=== PATIENT | male | born 1930 | race Caucasian/White ===

== ENCOUNTER 2017-04-15 20:08 | Observation (INO) | payer OTHER ==
[~2017-04-15] VITALS: Ht 177.8 cm; Wt 92.2 kg
[~2017-04-15 20:08] MED LIST: ACTOS30 MG PO; ATORVASTATIN CA80 MG PO; CELEBREX200 MG PO; CIPROFLOXACIN500 M1 PO; DELTASONE10 MG PO; FLONASE16 G1 BOTH NARES; GEMFIBROZIL600 MG PO; GLYBURIDE5 MG PO; HYDROCODON-ACE1 EAC7 PO; JANUVIA100 MG PO; LANTUS 3 M100 UNITS1 SQ; MACROBID100 MG PO; METRONIDAZOLE500 MG PO; OMEPRAZOLE20 M3 PO; PHENAZOPYRIDIN200 MG PO; Proventil,Ventolin H IH; SIMVASTATIN40 M1 PO; SOTALOL120 MG PO; SPIRIVA1 INHALATI IH; Tylenol Regular Stre PO; WARFARIN SODIUM4 MG PO; WARFARIN SODIUM5 MG PO
[2017-04-15 20:50] LABS: HEMATOCRIT 46.8 % (38.0-50.0); MCH 32.4 PG (29.0-34.0); MCV 95.3 FL (86-99); MEAN PLAT.VOLUME 10.4 uM^3 (9.0-12.4); PLATELET COUNT 141 K/uL (156-360); RBC DIS.WIDTH-CV 13.2 % (11.8-14.6); RED BLOOD COUNT 4.91 M/uL (4.00-5.50); WHITE BLOOD COUNT 9.3 K/uL (4.1-10.2)
[2017-04-15 20:59] LABS: CHLORIDE 107 mEq/L (99-109); POTASSIUM 4.2 mEq/L (3.7-5.4); SODIUM 141 mEq/L (136-147)
[2017-04-15 21:00] LABS: GLUCOSE 214 mg/dL (70-99)
[2017-04-15 21:02] LABS: ANION GAP 6 MEQ/L (2-14)
[2017-04-15 21:04] LABS: GFR ESTIMATE (CALCULATED) > 59 mL/min/
[2017-04-15 21:05] LABS: UREA NITROGEN (BUN) 20 mg/dL (9-23)
[2017-04-15 21:15] LABS: TROP-I INTERPRETATION NEGATIVE; TROPONIN-I < 0.01 ng/mL (0.0-0.30)
[2017-04-15] MEDS ORDERED: GLIPIZIDE10 MG PO (22:30)
[2017-04-15] MEDS ORDERED: JANTOVEN5 MG PO (22:30)
[2017-04-15] MEDS ORDERED: PRILOSEC20 MG PO (22:31)
[2017-04-15] MEDS ORDERED: DUONEB 2.5-0.5 M3 ML AEROSOL (22:32)
[2017-04-15] MEDS ORDERED: PIOGLITAZONE HC15 MG PO (22:33)
[2017-04-15] MEDS ORDERED: NOVOLOG PE100 UNITS/ SC (22:34)
[2017-04-15 22:57] LABS: ADD MIUA? NO; BILIRUBIN NEGATIVE; BLOOD NEGATIVE; COLOR YELLOW ((YELLOW)); GLUCOSE (STRIP) 150; KETONES 5; LEUKOCYTES NEGATIVE; NITRITE NEGATIVE; PROTEIN (STRIP) NEGATIVE; SPECIFIC GRAVITY 1.021 (1.000-1.030)
[2017-04-16 00:03] LABS: D-DIMER ELISA 0.25 mg/L FEU (< 0.57); INTER. NORMALIZED RATIO 1.2; PROTHROMBIN TIME 12.6 (9.2-11.2); PTT 31.3 (25-32)
[2017-04-16 01:44] VITALS: BP 159/71
[2017-04-16 04:18] VITALS: BP 143/74
[2017-04-16 07:54] LABS: INTER. NORMALIZED RATIO 1.4
[2017-04-16 07:57] LABS: PTT 63.1 (25-32)
[2017-04-16 08:18] LABS: HDL CHOLESTEROL 28 MG/DL (Desirable>=40); LDL CHOLESTEROL 61 mg/dL (Desirable<100); NON-HDL CHOLESTEROL 74 mg/dL (Desirable<160); TOTAL CHOLESTEROL 102 mg/dL (Desirable<200); TRIGLYCERIDES 64 MG/DL (Normal: <150)
[2017-04-16 08:22] LABS: POINT-OF-CARE METER ID UU13113831
[2017-04-16 09:32] LABS: Estimated Average Glucose 192 mg/dL (70-123); HEMOGLOBIN A1c (GLYCOHEMOGLOB) 8.3 % HGB (Below 5.7)
[2017-04-16 11:43] VITALS: BP 131/67
[2017-04-16 12:31] LABS: POINT-OF-CARE METER ID UU13113831
[2017-04-16 15:55] LABS: TROP-I INTERPRETATION NEGATIVE; TROPONIN-I < 0.01 ng/mL (0.0-0.30)
== END 2017-04-16 16:46 | disposition home or self-care (01) ==
LOC: EME 20:08 → EDOF 22:39 → 5WEST 22:39 → EDOF 22:39 → 5WEST 04-16 01:29
PROVIDERS: Internal Medicine; Internal Medicine Cardiovascular Disease; Physician Assistant; Student in an Organized Health Care Education/Training Program
DX: R55 Syncope and collapse (principal); E11.9 Type 2 diabetes mellitus without complications; J44.9 Chronic obstructive pulmonary disease, unspecified; I10 Essential (primary) hypertension; I48.0 Paroxysmal atrial fibrillation; Z79.01 Long term (current) use of anticoagulants; E78.5 Hyperlipidemia, unspecified; Z79.4 Long term (current) use of insulin; K21.9 Gastro-esophageal reflux disease without esophagitis; E66.9 Obesity, unspecified; Z68.29 Body mass index [BMI] 29.0-29.9, adult; E78.00 Pure hypercholesterolemia, unspecified
CPT/HCPCS: 70450; 80048; 80061; 81003; 82948; 83036; 84443; 84484; 85027; 85379; 85610; 85730; 93005; 94799; 99202; 99281; 99285; G0378; G8978 GP CH; G8979 GP CH; G8980 GP CH; J7030

== ENCOUNTER 2017-07-11 12:34 | Inpatient (IN) | payer OTHER ==
[~2017-07-11] VITALS: Ht 154.9 cm; Wt 88.0 kg
[~2017-07-11 12:34] MED LIST changes: +DUONEB 2.5-0.5 M3 ML AEROSOL; +GLIPIZIDE10 MG PO; +JANTOVEN5 MG PO; +NOVOLOG PE100 UNITS/ SC; +PIOGLITAZONE HC15 MG PO; +PRILOSEC20 MG PO
[2017-07-11 13:37] LABS: ADD MIUA? NO; BILIRUBIN NEGATIVE; BLOOD NEGATIVE; COLOR YELLOW ((YELLOW)); GLUCOSE (STRIP) >=500; KETONES 5; LEUKOCYTES NEGATIVE; NITRITE NEGATIVE; PROTEIN (STRIP) NEGATIVE; SPECIFIC GRAVITY 1.028 (1.000-1.030); UCUL ADDED? NO
[2017-07-11 14:23] LABS: EOSINOPHIL (%) 2.1 % (0-5); EOSINOPHIL COUNT 0.1 K/uL (0-0.3); HEMATOCRIT 46.3 % (38.0-50.0); IMMATURE GRANULOCYTE (%) 0.3 % (0.0-0.7); INSTRUMENT ABS NEUTROPHIL CT 4.7 K/uL; LYMPHOCYTE COUNT 1.1 K/uL (1.0-2.8); MCH 32.3 PG (29.0-34.0); MCHC 34.8 G/DL (30.0-36.0); MEAN PLAT.VOLUME 10.8 uM^3 (9.0-12.4); MONOCYTE (%) 9.2 % (3-12); MONOCYTE COUNT 0.6 K/uL (0-0.8); NEUTROPHIL (%) 71.4 % (45-76); NEUTROPHIL COUNT 4.7 K/uL (1.8-6.4); PLATELET COUNT 150 K/uL (156-360); RBC DIS.WIDTH-CV 12.8 % (11.8-14.6); RBC DIS.WIDTH-SD 43.8 % (39-53); RED BLOOD COUNT 4.98 M/uL (4.00-5.50); WHITE BLOOD COUNT 6.5 K/uL (4.1-10.2)
[2017-07-11 14:28] LABS: INTER. NORMALIZED RATIO 1.4; PROTHROMBIN TIME 15.1 SEC (10.2-12.9)
[2017-07-11 14:38] LABS: CHLORIDE 107 mEq/L (99-109); SODIUM 138 mEq/L (136-147)
[2017-07-11 14:40] LABS: GLUCOSE 288 mg/dL (70-99)
[2017-07-11 14:41] LABS: ANION GAP 8 MEQ/L (2-14)
[2017-07-11 14:42] LABS: TOTAL BILIRUBIN 2.5 mg/dL (0.0-1.0)
[2017-07-11 14:44] LABS: ALKALINE PHOSPHATASE 105 IU/L (3-129); GFR ESTIMATE (CALCULATED) > 59 mL/min/
[2017-07-11 14:45] LABS: UREA NITROGEN (BUN) 17 mg/dL (9-23)
[2017-07-11 14:46] LABS: TROP-I INTERPRETATION NEGATIVE; TROPONIN-I < 0.01 ng/mL (0.0-0.30)
[2017-07-11 17:12] VITALS: BP 179/80
[2017-07-11 17:40] LABS: POINT-OF-CARE METER ID UU14162513
[2017-07-11 19:57] VITALS: BP 149/83
[2017-07-11 21:14] LABS: TROP-I INTERPRETATION NEGATIVE; TROPONIN-I < 0.01 ng/mL (0.0-0.30)
[2017-07-12] VITALS (7 sets, daily range): BP systolic 96–181; BP diastolic 53–93
[2017-07-12 03:42] LABS: INTER. NORMALIZED RATIO 1.2; PROTHROMBIN TIME 13.6 SEC (10.2-12.9)
[2017-07-12 03:46] LABS: CHLORIDE 106 mEq/L (99-109); POTASSIUM 3.8 mEq/L (3.7-5.4); SODIUM 139 mEq/L (136-147)
[2017-07-12 03:48] LABS: GLUCOSE 223 mg/dL (70-99)
[2017-07-12 03:49] LABS: ANION GAP 8 MEQ/L (2-14)
[2017-07-12 03:52] LABS: GFR ESTIMATE (CALCULATED) > 59 mL/min/; UREA NITROGEN (BUN) 15 mg/dL (9-23)
[2017-07-12 03:55] LABS: TROP-I INTERPRETATION NEGATIVE; TROPONIN-I 0.02 ng/mL (0.0-0.30)
[2017-07-12 05:02] LABS: HDL CHOLESTEROL 30 MG/DL (Desirable>=40); LDL CHOLESTEROL 142 mg/dL (Desirable<100); NON-HDL CHOLESTEROL 169 mg/dL (Desirable<160); SAMPLE HEMOLYSIS CHECK 0; SAMPLE ICTERIC CHECK 0; SAMPLE LIPEMIA CHECK 0; TOTAL CHOLESTEROL 199 mg/dL (Desirable<200); TRIGLYCERIDES 134 MG/DL (Normal: <150)
[2017-07-12 06:31] LABS: Estimated Average Glucose 226 mg/dL (70-123); HEMOGLOBIN A1c (GLYCOHEMOGLOB) 9.5 % HGB (Below 5.7)
[2017-07-12] MEDS ORDERED: DIPROSONE 0.05%15 G1 TP (13:55)
[2017-07-13 06:03] LABS: HEMATOCRIT 45.7 % (38.0-50.0); MCH 31.8 PG (29.0-34.0); MCHC 34.1 G/DL (30.0-36.0); MCV 93.3 FL (86-99); MEAN PLAT.VOLUME 10.6 uM^3 (9.0-12.4); PLATELET COUNT 141 K/uL (156-360); RBC DIS.WIDTH-CV 12.7 % (11.8-14.6); RBC DIS.WIDTH-SD 43.8 % (39-53); WHITE BLOOD COUNT 5.3 K/uL (4.1-10.2)
[2017-07-13 06:36] LABS: ALKALINE PHOSPHATASE 88 IU/L (3-129); ANION GAP 7 MEQ/L (2-14); CHLORIDE 106 MEQ/L (99-109); GFR ESTIMATE (CALCULATED) > 59 mL/min/; GLUCOSE 233 mg/dL (70-99); POTASSIUM 4.1 MEQ/L (3.7-5.4); SAMPLE HEMOLYSIS CHECK 0; SAMPLE ICTERIC CHECK 1; SAMPLE LIPEMIA CHECK 0; SODIUM 139 MEQ/L (136-147); TOTAL BILIRUBIN 2.9 MG/DL (0.0-1.0); UREA NITROGEN (BUN) 17 mg/dL (9-23)
[2017-07-13 08:24] VITALS: BP 138/81
[2017-07-13 11:53] LABS: POINT-OF-CARE METER ID UU14174225
[2017-07-13 12:07] VITALS: BP 136/78
[2017-07-13 16:20] VITALS: BP 116/58
[2017-07-13 19:45] VITALS: BP 154/81
[2017-07-13 21:05] LABS: POINT-OF-CARE METER ID UU13113717
[2017-07-13 23:31] VITALS: BP 122/60
[2017-07-14 03:55] VITALS: BP 144/74
[2017-07-14 08:04] VITALS: BP 140/66
[2017-07-14 12:39] LABS: POINT-OF-CARE METER ID UU14174225
[2017-07-14 13:17] VITALS: BP 147/74
[2017-07-14 16:52] LABS: POINT-OF-CARE METER ID UU14174225
[2017-07-14 20:52] VITALS: BP 136/74
[2017-07-15 00:55] VITALS: BP 116/79
[2017-07-15 08:00] VITALS: BP 131/73
[2017-07-15 08:38] LABS: POINT-OF-CARE METER ID UU13113717
[2017-07-15] MEDS ORDERED: XARELTO20 MG PO (08:48)
[2017-07-15] MEDS ORDERED: ASPIR-LOW81 MG PO (08:49)
[2017-07-15] MEDS ORDERED: ATORVASTATIN CA80 MG PO (08:49)
[2017-07-15] MEDS ORDERED: PEPCID20 MG PO (13:03)
[2017-07-15] MEDS ORDERED: ACETAMINOPHEN325 M1 PO (13:07)
== END 2017-07-15 11:10 | DRG 64 ==
LOC: EME 12:34 → EDOF 15:42 → ENRESERV 15:45 → 5WEST 16:52 → 5SOUTH 16:56 → ENRESERV 17:06 → 5SOUTH 19:27
PROVIDERS: Internal Medicine; Physician Assistant Medical
DX: I63.132 Cerebral infarction due to embolism of left carotid artery (principal); G93.40 Encephalopathy, unspecified; E11.65 Type 2 diabetes mellitus with hyperglycemia; H53.461 Homonymous bilateral field defects, right side; I10 Essential (primary) hypertension; I48.0 Paroxysmal atrial fibrillation; I48.2 Chronic atrial fibrillation; R79.1 Abnormal coagulation profile; J44.9 Chronic obstructive pulmonary disease, unspecified; E78.00 Pure hypercholesterolemia, unspecified; E78.5 Hyperlipidemia, unspecified; K14.8 Other diseases of tongue; K21.9 Gastro-esophageal reflux disease without esophagitis; Z79.01 Long term (current) use of anticoagulants; Z79.4 Long term (current) use of insulin; Z87.891 Personal history of nicotine dependence
CPT/HCPCS: 70450; 70498; 70551; 71010; 76705; 80048; 80053; 80061; 81003; 82948; 83036; 84484; 85025; 85027; 85610; 93005; 93306; 93880; 96125 GN; 97530 GO; 99281; 99285; J1200; J1650; J1815; J7030; J7509; S0028

== ENCOUNTER 2017-07-15 11:27 | Inpatient (IN) | payer OTHER ==
[~2017-07-15] VITALS: Ht 177.8 cm; Wt 84.0 kg
[~2017-07-15 11:27] MED LIST changes: +ASPIR-LOW81 MG PO; +DIPROSONE 0.05%15 G1 TP; +XARELTO20 MG PO
[2017-07-15 11:30] VITALS: BP 146/71
[2017-07-15 12:09] LABS: POINT-OF-CARE METER ID UU13113720
[2017-07-15] MEDS ORDERED: PEPCID20 MG PO (13:03)
[2017-07-15] MEDS ORDERED: ACETAMINOPHEN325 M1 PO (13:07)
[2017-07-15 14:30] VITALS: BP 153/101
[2017-07-15 14:37] LABS: POINT-OF-CARE METER ID UU13113720; POINT-OF-CARE USER ID ENVGAF
[2017-07-15 14:45] VITALS: BP 201/101
[2017-07-15 14:50] LABS: HEMATOCRIT 49.7 % (38.0-50.0); MCH 31.8 PG (29.0-34.0); MCHC 34.4 G/DL (30.0-36.0); MCV 92.6 FL (86-99); MEAN PLAT.VOLUME 10.6 uM^3 (9.0-12.4); RBC DIS.WIDTH-SD 43.9 % (39-53); RED BLOOD COUNT 5.37 M/uL (4.00-5.50); WHITE BLOOD COUNT 12.5 K/uL (4.1-10.2)
[2017-07-15 14:51] LABS: PLATELET COUNT 190 K/uL (156-360)
[2017-07-15 14:52] LABS: BICARBONATE 13.4 mEq/L (22-26); CARBOXY HGB 1.8 % (0-5); METHEMOGLOBIN 1.6 % (0-1.5); PCO2 36 mm Hg (35-45); PO2 96 mm Hg (80-100)
[2017-07-15 14:53] LABS: COMMENTS - BLOOD GASES C+; DEVICE RA AFTER BAGGING; SITE RR; pH 7.18 (7.35-7.45)
[2017-07-15 15:29] LABS: ANION GAP 14 MEQ/L (2-14); CHLORIDE 104 MEQ/L (99-109); GFR ESTIMATE (CALCULATED) > 59 mL/min/; GLUCOSE 341 mg/dL (70-99); POTASSIUM 3.8 MEQ/L (3.7-5.4); SAMPLE HEMOLYSIS CHECK 0; SAMPLE ICTERIC CHECK 0; SAMPLE LIPEMIA CHECK 0; SODIUM 138 MEQ/L (136-147); UREA NITROGEN (BUN) 25 mg/dL (9-23)
[2017-07-16] VITALS (7 sets, daily range): BP systolic 120–139; BP diastolic 57–92
== END 2017-07-15 15:14 | DRG 57 ==
LOC: 3WEST 11:27 → CANRESERV 15:13 → ENRESERV 15:13 → 3WEST 15:13
PROVIDERS: Hospitalist; Physical Medicine & Rehabilitation Pain Medicine
DX: I69.398 Other sequelae of cerebral infarction (principal); R41.0 Disorientation, unspecified; R45.1 Restlessness and agitation; R56.9 Unspecified convulsions; I48.91 Unspecified atrial fibrillation; J44.9 Chronic obstructive pulmonary disease, unspecified; K21.9 Gastro-esophageal reflux disease without esophagitis; E11.9 Type 2 diabetes mellitus without complications; I10 Essential (primary) hypertension; H91.90 Unspecified hearing loss, unspecified ear
CPT/HCPCS: 36600; 80048; 82803; 82948; 85027; 94799; J1630

== ENCOUNTER 2017-07-15 15:22 | Inpatient (IN) | payer OTHER ==
[~2017-07-15] VITALS: Ht 172.7 cm; Wt 85.2 kg
[~2017-07-15 15:22] MED LIST changes: +ACETAMINOPHEN325 M1 PO; +PEPCID20 MG PO
[2017-07-15 15:43] VITALS: BP 124/74
[2017-07-15 17:04] LABS: METH RESISTANT S AUREUS PCR NEGATIVE (NEGATIVE)
[2017-07-15 17:09] LABS: PROBE CHECK PASS; SPECIMEN PROCESSING CONTROL PASS
[2017-07-15 17:30] LABS: TROP-I INTERPRETATION NEGATIVE; TROPONIN-I < 0.01 ng/mL (0.0-0.30)
[2017-07-15 19:00] VITALS: BP 112/54
[2017-07-15 21:00] VITALS: BP 136/85
[2017-07-15 22:06] LABS: POINT-OF-CARE METER ID UU14162636; POINT-OF-CARE USER ID 609231305
[2017-07-15 23:00] VITALS: BP 112/67
[2017-07-16 01:00] VITALS: BP 117/73
[2017-07-16 03:00] VITALS: BP 125/91
[2017-07-16 05:00] VITALS: BP 104/58
[2017-07-16 06:10] LABS: HEMATOCRIT 44.7 % (38.0-50.0); MCH 32.2 PG (29.0-34.0); MCHC 34.5 G/DL (30.0-36.0); MCV 93.5 FL (86-99); MEAN PLAT.VOLUME 10.8 uM^3 (9.0-12.4); PLATELET COUNT 150 K/uL (156-360); RBC DIS.WIDTH-CV 12.9 % (11.8-14.6); RBC DIS.WIDTH-SD 44.5 % (39-53); RED BLOOD COUNT 4.78 M/uL (4.00-5.50); WHITE BLOOD COUNT 10.7 K/uL (4.1-10.2)
[2017-07-16 06:39] LABS: ANION GAP 8 MEQ/L (2-14); CHLORIDE 107 MEQ/L (99-109); GFR ESTIMATE (CALCULATED) > 59 mL/min/; GLUCOSE 167 mg/dL (70-99); POTASSIUM 3.9 MEQ/L (3.7-5.4); SAMPLE HEMOLYSIS CHECK 0; SAMPLE ICTERIC CHECK 0; SAMPLE LIPEMIA CHECK 0; SODIUM 142 MEQ/L (136-147); UREA NITROGEN (BUN) 25 mg/dL (9-23)
[2017-07-16 08:32] LABS: BASE EXCESS -1.1 mEq/L (-3 to +3); CARBOXY HGB 2.1 % (0-5); METHEMOGLOBIN 1.5 % (0-1.5)
[2017-07-16 08:33] LABS: BICARBONATE 24.3 mEq/L (22-26); COMMENTS - BLOOD GASES C+; DEVICE NC; O2 FLOW 1 L/MIN; PCO2 42 mm Hg (35-45); PO2 62 mm Hg (80-100); SITE RR; TOTAL RESP RATE 16 resp/min; pH 7.37 (7.35-7.45)
[2017-07-16 12:04] LABS: POINT-OF-CARE METER ID UU13113731
[2017-07-16 17:31] LABS: POINT-OF-CARE METER ID UU13113731
[2017-07-16 19:01] LABS: C DIFF TOXIN NEGATIVE (NEGATIVE)
[2017-07-16 19:18] LABS: PROBE CHECK PASS; SPECIMEN PROCESSING CONTROL PASS
[2017-07-16 21:15] LABS: POINT-OF-CARE METER ID UU13113731
[2017-07-16 22:00] VITALS: BP 139/58
[2017-07-17] VITALS (7 sets, daily range): BP systolic 108–169; BP diastolic 50–97
[2017-07-17 01:04] LABS: POINT-OF-CARE METER ID UU13113731
[2017-07-17 05:30] LABS: EOSINOPHIL (%) 1.5 % (0-5); EOSINOPHIL COUNT 0.1 K/uL (0-0.3); HEMATOCRIT 45.4 % (38.0-50.0); IMMATURE GRANULOCYTE (%) 0.4 % (0.0-0.7); INSTRUMENT ABS NEUTROPHIL CT 5.3 K/uL; LYMPHOCYTE COUNT 1.2 K/uL (1.0-2.8); MCHC 34.4 G/DL (30.0-36.0); MEAN PLAT.VOLUME 10.6 uM^3 (9.0-12.4); MONOCYTE (%) 11.4 % (3-12); MONOCYTE COUNT 0.9 K/uL (0-0.8); NEUTROPHIL (%) 70.8 % (45-76); NEUTROPHIL COUNT 5.3 K/uL (1.8-6.4); PLATELET COUNT 146 K/uL (156-360); RBC DIS.WIDTH-CV 12.9 % (11.8-14.6); RBC DIS.WIDTH-SD 44.1 % (39-53); RED BLOOD COUNT 4.88 M/uL (4.00-5.50); WHITE BLOOD COUNT 7.5 K/uL (4.1-10.2)
[2017-07-17 05:53] LABS: POINT-OF-CARE METER ID UU14208751
[2017-07-17 06:12] LABS: ANION GAP 7 MEQ/L (2-14); CHLORIDE 110 MEQ/L (99-109); GFR ESTIMATE (CALCULATED) > 59 mL/min/; MAGNESIUM 1.7 mg/dl (1.3-2.7); POTASSIUM 3.4 MEQ/L (3.7-5.4); SAMPLE HEMOLYSIS CHECK 0; SAMPLE ICTERIC CHECK 0; SAMPLE LIPEMIA CHECK 0; SODIUM 143 MEQ/L (136-147); UREA NITROGEN (BUN) 19 mg/dL (9-23)
[2017-07-17 06:14] LABS: GLUCOSE 113 mg/dL (70-99)
[2017-07-17 12:43] LABS: POINT-OF-CARE METER ID UU13113731
[2017-07-17 17:23] LABS: POINT-OF-CARE METER ID UU14188577
[2017-07-17 23:57] LABS: POINT-OF-CARE METER ID UU14117124
[2017-07-18 03:41] VITALS: BP 117/63
[2017-07-18 06:47] LABS: POINT-OF-CARE METER ID UU14208753
[2017-07-18 07:51] VITALS: BP 123/58
[2017-07-18 15:45] VITALS: BP 136/80
[2017-07-18 21:49] LABS: POINT-OF-CARE METER ID UU14188577
[2017-07-19 00:33] VITALS: BP 122/69
[2017-07-19 03:10] VITALS: BP 130/63
[2017-07-19 06:26] LABS: POINT-OF-CARE METER ID UU14117124
[2017-07-19 07:00] LABS: ANION GAP 6 MEQ/L (2-14); CHLORIDE 107 MEQ/L (99-109); GFR ESTIMATE (CALCULATED) > 59 mL/min/; MAGNESIUM 1.6 mg/dl (1.3-2.7); POTASSIUM 3.9 MEQ/L (3.7-5.4); SAMPLE HEMOLYSIS CHECK 0; SAMPLE ICTERIC CHECK 0; SAMPLE LIPEMIA CHECK 0; SODIUM 141 MEQ/L (136-147); UREA NITROGEN (BUN) 14 mg/dL (9-23)
[2017-07-19 07:02] LABS: GLUCOSE 187 mg/dL (70-99)
[2017-07-19 07:51] VITALS: BP 139/84
[2017-07-19 11:25] LABS: POINT-OF-CARE METER ID UU14117124
[2017-07-19] MEDS ORDERED: LEVETIRACETAM500 MG PO (14:07)
== END 2017-07-19 14:44 | DRG 100 ==
LOC: 3EAST 15:22 → 4WEST 15:22 → ENRESERV 07-17 14:20 → 3EAST 07-17 16:41
PROVIDERS: Hospitalist; Internal Medicine; Internal Medicine Nephrology; Physical Medicine & Rehabilitation Pain Medicine
DX: G40.89 Other seizures (principal); I63.40 Cerebral infarction due to embolism of unspecified cerebral artery; G93.40 Encephalopathy, unspecified; I48.2 Chronic atrial fibrillation; J44.9 Chronic obstructive pulmonary disease, unspecified; E87.2 Acidosis; E87.6 Hypokalemia; E11.65 Type 2 diabetes mellitus with hyperglycemia; I10 Essential (primary) hypertension; Z79.01 Long term (current) use of anticoagulants; I65.29 Occlusion and stenosis of unspecified carotid artery; K21.9 Gastro-esophageal reflux disease without esophagitis; R09.02 Hypoxemia
CPT/HCPCS: 36600; 70450; 80048; 82803; 82948; 83735; 84146; 84484; 85025; 85027; 87493; 87641; 92523 GN; 92526 GN; 92610 GN; 93005; 94640; 94640 76; 94799; 97530 GO; 97530 GP; 97532 GN; J1630; J1815; J1953; J2060; J7030; J7050; S0028

== ENCOUNTER 2017-07-19 12:13 | Inpatient (IN) | payer OTHER ==
[~2017-07-19] VITALS: Ht 177.8 cm; Wt 84.7 kg
[2017-07-19] MEDS ORDERED: LEVETIRACETAM500 MG PO (14:07)
[2017-07-19 15:37] VITALS: BP 155/78
[2017-07-19 16:30] LABS: POINT-OF-CARE METER ID UU14174215
[2017-07-19 21:07] LABS: POINT-OF-CARE METER ID UU13113720
[2017-07-20 05:05] VITALS: BP 153/70
[2017-07-20 06:09] LABS: HEMATOCRIT 45.7 % (38.0-50.0); MCH 33.1 PG (29.0-34.0); MCHC 35.9 G/DL (30.0-36.0); MCV 92.3 FL (86-99); MEAN PLAT.VOLUME 10.7 uM^3 (9.0-12.4); PLATELET COUNT 147 K/uL (156-360); RBC DIS.WIDTH-SD 43.9 % (39-53); RED BLOOD COUNT 4.95 M/uL (4.00-5.50); WHITE BLOOD COUNT 6.1 K/uL (4.1-10.2)
[2017-07-20 06:35] LABS: ALKALINE PHOSPHATASE 99 IU/L (3-129); ANION GAP 8 MEQ/L (2-14); CHLORIDE 104 MEQ/L (99-109); GFR ESTIMATE (CALCULATED) > 59 mL/min/; GLUCOSE 151 mg/dL (70-99); POTASSIUM 3.9 MEQ/L (3.7-5.4); SAMPLE HEMOLYSIS CHECK 0; SAMPLE ICTERIC CHECK 0; SAMPLE LIPEMIA CHECK 0; SODIUM 140 MEQ/L (136-147); TOTAL BILIRUBIN 1.8 MG/DL (0.0-1.0); UREA NITROGEN (BUN) 13 mg/dL (9-23)
[2017-07-20 11:21] LABS: POINT-OF-CARE METER ID UU14174215; POINT-OF-CARE USER ID ENVGAF
[2017-07-20 15:31] VITALS: BP 127/70
[2017-07-20 16:25] LABS: POINT-OF-CARE METER ID UU14174215
[2017-07-20 21:13] LABS: POINT-OF-CARE METER ID UU13113720
[2017-07-21 04:10] VITALS: BP 131/62
[2017-07-21 07:38] LABS: POINT-OF-CARE METER ID UU14174215
[2017-07-21 15:24] LABS: POINT-OF-CARE METER ID UU14174215
[2017-07-21 15:25] VITALS: BP 122/67
[2017-07-21 16:36] LABS: POINT-OF-CARE METER ID UU13113720
[2017-07-21 21:23] LABS: POINT-OF-CARE METER ID UU14174215
[2017-07-22 04:52] VITALS: BP 111/55
[2017-07-22 06:57] LABS: POINT-OF-CARE METER ID UU13113720
[2017-07-22 11:39] LABS: POINT-OF-CARE METER ID UU14174215
[2017-07-22 15:13] VITALS: BP 102/63
[2017-07-22 16:29] LABS: POINT-OF-CARE METER ID UU14174215
[2017-07-22 21:05] LABS: POINT-OF-CARE METER ID UU13113720
[2017-07-23 05:37] VITALS: BP 119/58
[2017-07-23 06:58] LABS: POINT-OF-CARE METER ID UU13113720; POINT-OF-CARE USER ID ENVGAF
[2017-07-23 11:03] LABS: POINT-OF-CARE METER ID UU14174215
[2017-07-23 15:06] VITALS: BP 127/60
[2017-07-23 16:16] LABS: POINT-OF-CARE METER ID UU14174215
[2017-07-23 21:14] LABS: POINT-OF-CARE METER ID UU14174215
[2017-07-24 04:57] VITALS: BP 140/60
[2017-07-24 06:44] LABS: POINT-OF-CARE METER ID UU13113720; POINT-OF-CARE USER ID ENVGAF
[2017-07-24 11:16] LABS: POINT-OF-CARE METER ID UU14174215
[2017-07-24 15:01] VITALS: BP 149/71
[2017-07-24 16:05] LABS: POINT-OF-CARE METER ID UU14174215
[2017-07-24 20:54] LABS: POINT-OF-CARE METER ID UU14174215
[2017-07-25 06:29] VITALS: BP 115/57
[2017-07-25 07:25] LABS: POINT-OF-CARE METER ID UU14174215
[2017-07-25 11:14] LABS: POINT-OF-CARE METER ID UU14174215
[2017-07-25 15:14] VITALS: BP 119/57
[2017-07-25 16:30] LABS: POINT-OF-CARE METER ID UU13113720
[2017-07-25 21:27] LABS: POINT-OF-CARE METER ID UU14174215
[2017-07-26 05:51] VITALS: BP 111/60
[2017-07-26 07:29] LABS: POINT-OF-CARE METER ID UU13113720
[2017-07-26 11:28] LABS: POINT-OF-CARE METER ID UU13113720; POINT-OF-CARE USER ID AHSSSJB31
[2017-07-26 12:46] LABS: HEMATOCRIT 46.7 % (38.0-50.0); MCH 32.3 PG (29.0-34.0); MCV 94.7 FL (86-99); MEAN PLAT.VOLUME 10.5 uM^3 (9.0-12.4); PLATELET COUNT 187 K/uL (156-360); RBC DIS.WIDTH-CV 13.2 % (11.8-14.6); RBC DIS.WIDTH-SD 45.2 % (39-53); RED BLOOD COUNT 4.93 M/uL (4.00-5.50); WHITE BLOOD COUNT 7.8 K/uL (4.1-10.2)
[2017-07-26 13:31] LABS: ALKALINE PHOSPHATASE 96 IU/L (3-129); ANION GAP 7 MEQ/L (2-14); CHLORIDE 101 MEQ/L (99-109); GFR ESTIMATE (CALCULATED) > 59 mL/min/; GLUCOSE 293 mg/dL (70-99); POTASSIUM 4.5 MEQ/L (3.7-5.4); SAMPLE HEMOLYSIS CHECK 0; SAMPLE ICTERIC CHECK 0; SAMPLE LIPEMIA CHECK 0; SODIUM 137 MEQ/L (136-147); UREA NITROGEN (BUN) 17 mg/dL (9-23)
[2017-07-26 13:32] LABS: TOTAL BILIRUBIN 1.1 MG/DL (0.0-1.0)
[2017-07-26 15:32] VITALS: BP 123/63
[2017-07-26 16:14] LABS: POINT-OF-CARE METER ID UU14174215
[2017-07-26 21:35] LABS: POINT-OF-CARE METER ID UU14174215
[2017-07-27 05:36] VITALS: BP 135/65
[2017-07-27 07:29] LABS: POINT-OF-CARE METER ID UU14174215
[2017-07-27 09:24] LABS: POINT-OF-CARE METER ID UU14174215
[2017-07-27 11:22] LABS: POINT-OF-CARE METER ID UU14174215
[2017-07-27] MEDS ORDERED: LEVETIRACETAM500 MG PO (11:23)
[2017-07-27] MEDS ORDERED: NOVOLOG PE100 UNITS/ SC (11:35)
[2017-07-27] MEDS ORDERED: LEVEMIR100 UNIT/2 SC (11:35)
[2017-07-27 12:55] LABS: POINT-OF-CARE METER ID UU14174215
[2017-07-27] MEDS ORDERED: XARELTO20 MG PO (13:20)
[2017-07-27] MEDS ORDERED: SOTALOL120 MG PO (13:22)
== END 2017-07-27 13:33 | DRG 945 ==
LOC: 3WEST 12:13 → ENPENDDIS 07-27 → 3WEST 07-27 13:33
PROVIDERS: Physical Medicine & Rehabilitation Pain Medicine
PROC: F07M7ZZ Manual Therapy Techniques Treatment of Musculoskeletal System - Whole Body (ICD-10-PCS; principal; 2017-07-19)
DX: R53.1 Weakness (principal); I63.40 Cerebral infarction due to embolism of unspecified cerebral artery; H53.461 Homonymous bilateral field defects, right side; I10 Essential (primary) hypertension; I48.91 Unspecified atrial fibrillation; S81.801A Unspecified open wound, right lower leg, initial encounter; E11.9 Type 2 diabetes mellitus without complications; H91.90 Unspecified hearing loss, unspecified ear; K21.9 Gastro-esophageal reflux disease without esophagitis; G40.409 Other generalized epilepsy and epileptic syndromes, not intractable, without status epilepticus; J44.9 Chronic obstructive pulmonary disease, unspecified; E87.1 Hypo-osmolality and hyponatremia; D69.6 Thrombocytopenia, unspecified; I65.21 Occlusion and stenosis of right carotid artery; D72.829 Elevated white blood cell count, unspecified; E77.8 Other disorders of glycoprotein metabolism; G47.00 Insomnia, unspecified; R17 Unspecified jaundice; Z79.4 Long term (current) use of insulin; Z87.891 Personal history of nicotine dependence; Z82.49 Family history of ischemic heart disease and other diseases of the circulatory system; R41.0 Disorientation, unspecified
CPT/HCPCS: 71010; 80053; 82948; 85027; 92523 GN; 94640 76; 94760; 97110 GO; 97530 GP; 99202; J1815

== ENCOUNTER 2018-04-23 23:35 | Inpatient (IN) | payer OTHER ==
[~2018-04-23] VITALS: Ht 177.8 cm; Wt 83.0 kg
[~2018-04-23 23:35] MED LIST changes: +LEVEMIR100 UNIT/2 SC; +LEVETIRACETAM500 MG PO
[2018-04-24] LABS: HEMATOCRIT 43.5 % (38.0-50.0); HEMOGLOBIN 15.3 G/DL (12.5-16.6); MCH 33.6 PG (29.0-34.0); MCHC 35.2 G/DL (30.0-36.0); MCV 95.4 FL (86-99); PLATELET COUNT 172 K/uL (156-360); RBC DIS.WIDTH-CV 12.9 % (11.8-14.6); RBC DIS.WIDTH-SD 45.3 % (39-53); RED BLOOD COUNT 4.56 M/uL (4.00-5.50); WHITE BLOOD COUNT 11.2 K/uL (4.1-10.2)
[2018-04-24 00:07] LABS: ALBUMIN 3.7 g/dL (3.2-4.8)
[2018-04-24 00:10] LABS: CHLORIDE 105 mEq/L (99-109); GLUCOSE 74 mg/dL (70-99); POTASSIUM 3.7 mEq/L (3.7-5.4); SODIUM 141 mEq/L (136-147); TOTAL PROTEIN 6.4 g/dL (6.4-8.3)
[2018-04-24 00:13] LABS: ALKALINE PHOSPHATASE 111 IU/L (3-129)
[2018-04-24 00:14] LABS: CREATININE 0.8 mg/dL (0.6-1.3); GFR ESTIMATE (CALCULATED) > 59 mL/min/ (58.99-99999)
[2018-04-24 00:15] LABS: AST (GOT) 13 IU/L (2-34); UREA NITROGEN (BUN) 19 mg/dL (9-23)
[2018-04-24 00:17] LABS: ALT (GPT) 20 IU/L (3-49)
[2018-04-24 00:18] LABS: INTER. NORMALIZED RATIO 1.1
[2018-04-24 00:22] LABS: BASOPHIL (%) 0.3 % (0-1); EOSINOPHIL COUNT 0.1 K/uL (0-0.3); IMMATURE GRANULOCYTE (%) 0.3 % (0.0-0.7); LYMPHOCYTE (%) 8.2 % (15-42); LYMPHOCYTE COUNT 0.9 K/uL (1.0-2.8); MONOCYTE (%) 5.9 % (3-12); MONOCYTE COUNT 0.7 K/uL (0-0.8); NEUTROPHIL (%) 84.3 % (45-76); NEUTROPHIL COUNT 9.3 K/uL (1.8-6.4)
[2018-04-24 00:28] LABS: APPEARANCE SL.HAZY ((CLEAR)); BILIRUBIN NEGATIVE; BLOOD NEGATIVE; COLOR YELLOW ((YELLOW)); GLUCOSE (STRIP) NEGATIVE; KETONES 5; LEUKOCYTES NEGATIVE; NITRITE NEGATIVE; PROTEIN (STRIP) NEGATIVE; SPECIFIC GRAVITY 1.026 (1.000-1.030)
[2018-04-24 00:29] LABS: LIPASE 55 U/L (1.0-51.0)
[2018-04-24 00:30] LABS: BACTERIA NONE SEEN /HPF; EPITHELIAL CELLS RARE /HPF; MUCUS 1+ /LPF; RED BLOOD CELLS 0-5 /HPF (0-5); UCUL ADDED? NO; WHITE BLOOD CELLS 0-5 /HPF (0-5)
[2018-04-24 00:34] LABS: TROP-I INTERPRETATION NEGATIVE; TROPONIN-I < 0.01 ng/mL (0.0-0.30)
[2018-04-24] MEDS ORDERED: PRILOSEC20 MG PO (04:45)
[2018-04-24] MEDS ORDERED: SOTALOL120 MG PO (04:46)
[2018-04-24] MEDS ORDERED: LYRICA75 MG PO (04:47)
[2018-04-24] MEDS ORDERED: DUONEB 2.5-0.5 M3 ML AEROSOL (04:48)
[2018-04-24] MEDS ORDERED: GLUCOPHAGE500 MG PO (04:50)
[2018-04-24] MEDS ORDERED: NOVOLOG MI100 UNIT/2 SQ ×2 (04:51→04:52)
[2018-04-24 06:02] LABS: HEMATOCRIT 42.6 % (38.0-50.0); HEMOGLOBIN 15.2 G/DL (12.5-16.6); MCH 33.4 PG (29.0-34.0); MCHC 35.7 G/DL (30.0-36.0); MCV 93.6 FL (86-99); PLATELET COUNT 131 K/uL (156-360); RBC DIS.WIDTH-CV 12.9 % (11.8-14.6); RBC DIS.WIDTH-SD 44.1 % (39-53); RED BLOOD COUNT 4.55 M/uL (4.00-5.50); WHITE BLOOD COUNT 7.7 K/uL (4.1-10.2)
[2018-04-24 06:12] LABS: CHLORIDE 107 mEq/L (99-109); POTASSIUM 4.4 mEq/L (3.7-5.4); SODIUM 139 mEq/L (136-147)
[2018-04-24 06:15] VITALS: BP 160/81
[2018-04-24 06:17] LABS: CREATININE 0.7 mg/dL (0.6-1.3); GFR ESTIMATE (CALCULATED) > 59 mL/min/ (58.99-99999)
[2018-04-24 06:18] LABS: UREA NITROGEN (BUN) 16 mg/dL (9-23)
[2018-04-24 06:19] LABS: GLUCOSE 221 mg/dL (70-99)
[2018-04-24 06:21] LABS: TROP-I INTERPRETATION NEGATIVE; TROPONIN-I < 0.01 ng/mL (0.0-0.30)
[2018-04-24 08:00] VITALS: BP 132/65
[2018-04-24 08:52] LABS: THYROTROPIN (TSH) 1.3 MIU/L (0.4-5.5)
[2018-04-24 09:27] LABS: HEMOGLOBIN A1c (GLYCOHEMOGLOB) 8.7 % (Below 5.7)
[2018-04-24] MEDS ORDERED: GLUCOPHAGE XR,500 MG PO (10:49)
[2018-04-24] MEDS ORDERED: XARELTO20 MG PO (10:52)
[2018-04-24 11:45] VITALS: BP 150/82
[2018-04-24 14:07] LABS: TROP-I INTERPRETATION NEGATIVE; TROPONIN-I < 0.01 ng/mL (0.0-0.30)
[2018-04-24 17:00] VITALS: BP 124/81
[2018-04-24 19:28] VITALS: BP 150/72
[2018-04-25 00:15] VITALS: BP 107/56
[2018-04-25 04:12] VITALS: BP 115/60
[2018-04-25 08:23] VITALS: BP 139/70
[2018-04-25 12:02] VITALS: BP 138/66
[2018-04-25 15:50] VITALS: BP 140/67
[2018-04-25 20:05] VITALS: BP 150/70
[2018-04-26 00:33] VITALS: BP 138/62
[2018-04-26 03:00] VITALS: BP 145/74
[2018-04-26 07:23] VITALS: BP 112/56
[2018-04-26] MEDS ORDERED: LANTUS 3 M100 UNITS1 SC (11:40)
[2018-04-26 11:49] VITALS: BP 125/71
== END 2018-04-26 15:18 | disposition home health service (06) | DRG 637 ==
LOC: EME → EDBD 23:35 → EME 23:35 → 4EAST 04-24 02:44 → EDOF 04-24 02:44 → ENRESERV 04-24 02:45 → 4EAST 04-24 06:10
PROVIDERS: Emergency Medicine; Hospitalist; Internal Medicine
DX: E11.649 Type 2 diabetes mellitus with hypoglycemia without coma (principal); G93.41 Metabolic encephalopathy; I63.233 Cerebral infarction due to unspecified occlusion or stenosis of bilateral carotid arteries; I48.2 Chronic atrial fibrillation; D69.6 Thrombocytopenia, unspecified; J44.9 Chronic obstructive pulmonary disease, unspecified; Z99.81 Dependence on supplemental oxygen; G40.909 Epilepsy, unspecified, not intractable, without status epilepticus; E11.51 Type 2 diabetes mellitus with diabetic peripheral angiopathy without gangrene; I69.328 Other speech and language deficits following cerebral infarction; I69.319 Unspecified symptoms and signs involving cognitive functions following cerebral infarction; E11.65 Type 2 diabetes mellitus with hyperglycemia; F03.90 Unspecified dementia, unspecified severity, without behavioral disturbance, psychotic disturbance, mood disturbance, and anxiety; I69.392 Facial weakness following cerebral infarction; Z79.4 Long term (current) use of insulin; R68.0 Hypothermia, not associated with low environmental temperature; I10 Essential (primary) hypertension; K21.9 Gastro-esophageal reflux disease without esophagitis; Z83.3 Family history of diabetes mellitus; Z87.891 Personal history of nicotine dependence; E04.2 Nontoxic multinodular goiter; E78.5 Hyperlipidemia, unspecified; H91.90 Unspecified hearing loss, unspecified ear
CPT/HCPCS: 70450; 70551; 71045; 80048; 80053; 81003; 82948; 83036; 83605; 83690; 83880; 84443; 84484; 85025; 85027; 85610; 85730; 87040; 93005; 93306; 93880; 94640; 94640 76; 94760; 94799; 97530 GO; 99202; 99281; 99285; J1815; J2060; J7040